=== PATIENT | male | born 1935 | race Caucasian/White ===

== ENCOUNTER → 2017-01-28 | Outpatient (CLI) | payer OTHER, BC | LOC: FIMAGING 10:11 | PROVIDERS: ATTEND Specialist | DX: N13.30 Unspecified hydronephrosis (principal) ==

== ENCOUNTER → 2017-02-18 | Outpatient (CLI) | payer OTHER ==
[~2017-02-18] MED LIST: IOPAMIDOL (ISOVUE-300) 100 ML BTL ONE
== END ==
LOC: FIMAGING 08:43
PROVIDERS: ATTEND Specialist
PROC: CP1Z1ZZ Planar Nuclear Medicine Imaging of Musculoskeletal System, All using Technetium 99m (Tc-99m) (ICD-10-PCS; principal; 2017-02-18)
DX: C61 Malignant neoplasm of prostate (principal)
CPT/HCPCS: 74177; 78306; A9503; Q9967

== ENCOUNTER 2017-03-27 22:14 | Emergency (ER) | payer OTHER, BC ==
--- NOTE | 2017-03-27 23:44 | EDPHY ---
H & P Stated Complaint: PROSTRATE LASER SURG MON, CATHETER IN , FORESKIN SWELLING NOW Time Seen by Provider: 03/27/17 22:41 HPI/ROS: Chief Complaint: Penis foreskin swelling HPI: 81-year-old male who had a green light prostate surgery [address] Kong. Patient had his Cabezas catheter removed yesterday morning but went into urinary retention so returned to the urologist's office yesterday afternoon. At that time he had a no other Cabezas catheter placed. He is reporting that when the replaced that catheter they did not reduce his foreskin to the normal position. Since that time he has been having increasing swelling and discomfort of the distal ends of his penis and foreskin. No fevers or chills. No redness or discharge. He says his catheter has been draining normally. ROS: 10 point Review of Systems is negative except as noted in the HPI. Family History: non-contributory Physical Exam: Gen: Awake, Alert, No Distress HEENT: Nose: no rhinorrhea Eyes: PERRLA, EOMI Mouth: Moist mucosa Neck: Supple, no JVD Chest: nontender, lungs clear to auscultation Heart: S1, S2 normal, no murmur Abd: Soft, non-tender, no guarding Genital: Cabezas catheter in place. Patient's foreskin is retracted with significant distal swelling and swelling of the glans consistent with a paraphimosis. No scrotal tenderness or swelling. No inguinal lymphadenopathy. No erythema. No discharge. Back: no CVA tenderness, no midline tenderness Ext: no edema, non-tender Skin: no rash Neuro: CN II-XII intact, Sensation grossly intact, Strength 5/5 in bilateral upper and lower extremities - Personal History Current Tetanus/Diphtheria Vaccine: Yes - Medical/Surgical History Hx Asthma: No Hx Chronic Respiratory Disease: No Hx Diabetes: No Hx Cardiac Disease: No Hx Renal Disease: No Hx Cirrhosis: No Hx Alcoholism: No Hx HIV/AIDS: No Hx Splenectomy or Spleen Trauma: No Other PMH: HERNIA, APPY, HTN,ANXIETY, ENLARGED PROSTATE - Social History Smoking Status: Never smoked Constitutional: Initial Vital Signs Temperature (C) 36.8 C 03/27/17 22:19 Heart Rate 81 03/27/17 22:19 Respiratory Rate 18 03/27/17 22:19 Blood Pressure 147/86 H 03/27/17 22:19 O2 Sat (%) 93 03/27/17 22:19 O2 Delivery Mode Room Air Allergies/Adverse Reactions: No Known Allergies Allergy (Unverified 03/27/17 22:17) Home Medications: Medication Instructions Recorded Aspirin [Aspirin 81mg (OTC)] 81 mg PO DAILY 09/20/11 Lisinopril [Zestril 10 mg (RX)] 10 mg PO DAILY 09/20/11 Hydrocodone-Acetamin 5-325 mg 03/27/17 Medical Decision Making ED Course/Re-evaluation: 81-year-old male presenting with a paraphimosis after not having his foreskin reduced from a Cabezas catheter placement yesterday. Using gentle pressure over the glans and distal foreskin I have been able to reduce the swelling and I have successfully been able to reduce his foreskin back to a normal position. Patient tolerated the procedure well. He has been observed in the emergency department is not had any return of his paraphimosis. I have discussed with Dr. Delarosa, urology, who was on-call for Dr. Kong. He would like the patient seen in the office on Thursday. Family is to call Thursday morning to arrange appointment. Patient will return for any concerns. Departure - Departure Disposition: Home, Routine, Self-Care Clinical Impression: Paraphimosis Condition: Good Instructions: Acute Paraphimosis (ED) Additional Instructions: Follow up with your urologist on Thursday. Return to the emergency department for worsening swelling, worsening pain, fevers or chills, difficulty passing urine, or any other concerns. Referrals: Charli Kong MD [Primary Care Provider] - As per Instructions
[2017-03-27 23:54] VITALS: BP 138/74; PULSE 66; RESP 16; TEMP 98.1; O2SAT 96
== END 2017-03-27 23:53 | disposition home or self-care (01) ==
DX: N47.2 Paraphimosis (principal); I10 Essential (primary) hypertension; Z79.82 Long term (current) use of aspirin

== ENCOUNTER 2017-03-30 16:23 | Inpatient (IN) | payer OTHER, BC ==
[2017-03-30] MEDS ORDERED: ONDANSETRON DISINTEGRATING 4 MG TAB PO ONE (16:34)
--- NOTE | 2017-03-30 17:36 | EDPHY ---
H & P Time Seen by Provider: 03/30/17 17:16 HPI/ROS: Chief complaint. Fever, vomiting HPI. 81-year-old male presents emergency department with chills that began yesterday and fever to 101 degrees today. He had prostate surgery on March 23. Patient was seen on March 27 in the emergency department for paraphimosis which was reduced. He went to the urologist's office this morning they took his catheter out though he could not void and then he had a return to the urologist's office this afternoon for catheter placement hand had 1 L of urine out. notes that the urine this afternoon has been more bloody than previously. Patient has no upper respiratory symptoms including congestion or cough or sore throat. No chest discomfort or shortness of breath. Today an episode of nausea vomiting and shaking with the fever to 101 degrees. ROS Constitutional. Fever and chills Eyes. no problems with vision ENT. no sore throat, no nasal drainage Cardiovascular. no chest pain Respiratory. no shortness of breath, no cough Abdominal. no abdominal pain, no nausea/vomiting, no diarrhea . Cabezas catheter removed and replaced secondary to inability to void after prostate surgery MS. no calf pain/swelling, no neck/back pain, no joint pain Skin. no rash Lymph. no swollen glands Neuro. no headache, no dizziness, no difficulty walking or with speech Past Medical/Surgical History: Hernia, appendectomy, hypertension, anxiety, BPH status post prostate surgery Social History: , nonsmoker, no alcohol Smoking Status: Never smoked Physical Exam: General Appearance: Alert well-developed male moderate distress vital signs show temp 37.4 degrees. Blood pressure 113/90 Eyes: Pupils equal and round no pallor or injection. ENT, Mouth: Mucous membranes are moist. Respiratory: There are no retractions, lungs are clear to auscultation. Cardiovascular: Regular rate and rhythm. Gastrointestinal: Abdomen is soft and nontender, no masses, bowel sounds normal. Neurological: Awake and alert, sensory and motor exams grossly normal. Skin: Warm and dry, no rashes. Musculoskeletal: Neck is supple nontender. Extremities symmetrical, full range of motion. Psychiatric: Patient is oriented X 3, there is no agitation. Constitutional: Initial Vital Signs Temperature (C) 37.4 C 03/30/17 16:29 Heart Rate 92 03/30/17 16:29 Respiratory Rate 20 03/30/17 16:29 Blood Pressure 113/90 H 03/30/17 16:29 O2 Sat (%) 95 03/30/17 16:29 O2 Delivery Mode Room Air Allergies/Adverse Reactions: No Known Allergies Allergy (Verified 03/30/17 16:32) Home Medications: Medication Instructions Recorded Aspirin EC [Aspirin EC 81 mg (*)] 81 mg PO DAILY 03/30/17 Herbals/Supplements -Info Only 1 ea PO DAILY 03/30/17 Hydrocodone/Acetaminophen 1 - 2 tab PO Q6 PRN 03/30/17 [Hydrocodone-Acetamin 5-325 mg] LORazepam [Lorazepam] 1 mg PO DAILY PRN 03/30/17 Lisinopril [Lisinopril] 10 mg PO DAILY 03/30/17 Tamsulosin HCl [Flomax 0.4 MG (*)] 0.4 mg PO DAILY 03/30/17 Medical Decision Making - Diagnostics Imaging Results: Imaging Impressions Chest X-Ray 03/30/17 17:40 Impression: 1. Lingular and left basilar airspace opacities which may represent atelectasis and/or pneumonia in the proper clinical setting. 2. Prominence of the cardiac silhouette on lateral view may indicate left atrial enlargement. Procedures: IV normal saline. Septic workup. ED Course/Re-evaluation: 6:35 p.m. severe sepsis declared. 30 mls per kg bolus is given. Cultures have been obtained. He is given 1 g Rocephin IV as I believe this is likely UTI as he has had recent prostate surgery and multiple catheters in and out. I thought his chest x-ray looked pretty normal. I have discussed the laboratory imaging evaluation with the patient and family and recommendation for admission. They expressed understanding And agreement I consulted and discussed case with Dr. Maguire, hospitalist, who agrees to the admission Differential Diagnosis: This is likely UTI as a cause of severe sepsis. Patient is not hypotensive. I considered pneumonia as well as influenza. - Data Points Laboratory Results: Laboratory Results 03/30/17 17:23 03/30/17 17:23 03/30/17 03/30/17 03/30/17 18:05 17:23 17:23 WBC RBC Hgb Hct MCV MCH MCHC RDW Plt Count MPV Neut % (Auto) Lymph % (Auto) [place] % (Auto) Eos % (Auto) Baso % (Auto) Nucleat RBC Rel Count Absolute Neuts (auto) Absolute Lymphs (auto) Absolute Monos (auto) Absolute Eos (auto) Absolute Basos (auto) Absolute Nucleated RBC Immature Gran % Immature Gran # Platelet Estimate PT INR APTT VBG Lactic Acid Sodium 127 mEq/L L mEq/L (135-145) Potassium 4.2 mEq/L mEq/L (3.5-5.2) Chloride 95 mEq/L L mEq/L (97-110) Carbon Dioxide 19 mEq/l L mEq/l (22-31) Anion Gap 13 mEq/L mEq/L (8-16) BUN 20 mg/dL mg/dL (7-23) Creatinine 1.2 mg/dL mg/dL (0.7-1.3) Estimated GFR 58 Glucose 73 mg/dL mg/dL (70-100) Calcium 8.5 mg/dL mg/dL (8.5-10.4) Total Bilirubin 1.0 mg/dL mg/dL (0.1-1.4) Lactate Dehydrogenase 849 IU/L H IU/L (313-618) Specimen Hemolysis 104 Nasal Influenza A PCR NEGATIVE FOR FLU A (NEGATIVE) Nasal Influenza B PCR NEGATIVE FOR FLU B (NEGATIVE) 03/30/17 03/30/17 03/30/17 17:23 17:23 17:23 WBC 1.25 10^3/uL L 10^3/uL (3.80-9.50) RBC 3.58 10^6/uL L 10^6/uL (4.40-6.38) Hgb 11.7 g/dL L g/dL (13.7-17.5) Hct 33.2 % L % (40.0-51.0) MCV 92.7 fL fL (81.5-99.8) MCH 32.7 pg pg (27.9-34.1) MCHC 35.2 g/dL g/dL (32.4-36.7) RDW 12.1 % % (11.5-15.2) Plt Count 114 10^3/uL L 10^3/uL (150-400) MPV 10.9 fL fL (8.7-11.7) Neut % (Auto) 88.8 % H % (39.3-74.2) Lymph % (Auto) 10.4 % L % (15.0-45.0) [place] % (Auto) 0.0 % L % (4.5-13.0) Eos % (Auto) 0.8 % % (0.6-7.6) Baso % (Auto) 0.0 % L % (0.3-1.7) Nucleat RBC Rel Count 0.0 % % (0.0-0.2) Absolute Neuts (auto) 1.11 10^3/uL L 10^3/uL (1.70-6.50) Absolute Lymphs (auto) 0.13 10^3/uL L 10^3/uL (1.00-3.00) Absolute Monos (auto) 0.00 10^3/uL L 10^3/uL (0.30-0.80) Absolute Eos (auto) 0.01 10^3/uL L 10^3/uL (0.03-0.40) Absolute Basos (auto) 0.00 10^3/uL L 10^3/uL (0.02-0.10) Absolute Nucleated RBC 0.00 10^3/uL 10^3/uL (0-0.01) Immature Gran % 0.0 % % (0.0-1.1) Immature Gran # 0.00 10^3/uL 10^3/uL (0.00-0.10) Platelet Estimate Pending PT 15.8 SEC H SEC (12.0-15.0) INR 1.24 H (0.83-1.16) APTT 29.5 SEC SEC (23.0-38.0) VBG Lactic Acid 3.8 mmol/L H mmol/L (0.7-2.1) Sodium Potassium Chloride Carbon Dioxide Anion Gap BUN Creatinine Estimated GFR Glucose Calcium Total Bilirubin Lactate Dehydrogenase Specimen Hemolysis Nasal Influenza A PCR Nasal Influenza B PCR Medications Given: Sodium Chloride (Ns) 1,000 mls @ 250 mls/hr IV ONCE ONE Stop: 03/31/17 00:54 Last Admin: 03/30/17 20:59 Dose: 1,000 mls Ondansetron HCl (Zofran) 4 mg IVP Q4HRS PRN PRN Reason: Nausea/Vomiting, Can't Take PO Stop: 09/26/17 18:44 Last Admin: 03/30/17 21:22 Dose: 4 mg Discontinued Medications Sodium Chloride (Ns) 1,000 mls @ 0 mls/hr IV EDNOW ONE; Wide Open PRN Reason: Protocol Stop: 03/30/17 17:57 Last Admin: 03/30/17 18:19 Dose: 1,000 mls Sodium Chloride (Ns) 2,200 mls @ 4,400 mls/hr 30 ml/kg infuse over 30 min ( 2200 ml) IV EDNOW ONE PRN Reason: Protocol Stop: 03/30/17 19:02 Last Admin: 03/30/17 19:30 Dose: 2,200 mls Ceftriaxone Sodium/Dextrose (Rocephin 1 Gm (Premix)) 50 mls @ 100 mls/hr IV EDNOW ONE PRN Reason: Protocol Stop: 03/30/17 19:09 Last Admin: 03/30/17 19:35 Dose: 50 mls Ondansetron HCl (Zofran Odt) 4 mg PO EDNOW ONE Stop: 03/30/17 16:35 Last Admin: 03/30/17 16:36 Dose: 4 mg Ondansetron HCl (Zofran) 4 mg IVP EDNOW ONE Stop: 03/30/17 18:33 Last Admin: 03/30/17 18:37 Dose: 4 mg Departure - Departure Disposition: [facility] Inpatient Acute Clinical Impression: Sepsis Qualifiers: Sepsis type: sepsis due to unspecified organism Qualified Code(s): A41.9 - Sepsis, unspecified organism Condition: Fair
[2017-03-30] MEDS ORDERED: NS 1,000 ML IV ONE ×2 (17:56→20:55)
[2017-03-30 18:04] LABS: PLATELET COUNT 114 10^3/uL (150-400)
[2017-03-30 18:06] LABS: INR 1.24 (0.83-1.16); PROTIME(PATIENT) 15.8 SEC (12.0-15.0)
[2017-03-30] MEDS ORDERED: ONDANSETRON 4 MG/2 ML VIAL IVP ONE (18:32)
[2017-03-30] MEDS ORDERED: NS 2,200 ML IV ONE (18:33)
[2017-03-30] MEDS ORDERED: ACETAMINOPHEN 325 MG TAB PO PRN (18:45)
[2017-03-30] MEDS ORDERED: ONDANSETRON DISINTEGRATING 4 MG TAB PO PRN (18:45)
[2017-03-30] MEDS: ONDANSETRON 4 MG/2 ML VIAL IVP PRN (21:22)
--- NOTE | 2017-03-30 21:39 | GHP ---
[f rep st] HISTORY AND PHYSICAL DATE OF ADMISSION: 03/30/2017 CHIEF COMPLAINT: 1. Sepsis. 2. UTI. PRIMARY UROLOGIST: Charli Kong MD HPI: 81-year-old male with history of BPH presenting with fever and vomiting. He had a GreenLight surgery on 03/23/2017, by Dr. Kong and had a Cabezas placed then. He was seen here at [facility] on the for paraphimosis which was reduced. He had his catheter removed yesterday but was unable to void, thus he returned to his urologist's office this morning and the catheter was replaced and had a liter of urine out. noticed today that the urine was more bloody. He complained of pain in his penis and it was very swollen today. Had shaking chills, nausea and vomiting. He had a fever to 101. He denies any upper respiratory symptoms. REVIEW OF SYSTEMS: I completed a 10-point Review of Systems, negative except as noted in the HPI. 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 PAST SURGICAL HISTORY: Appendectomy, hernia repair. SOCIAL HISTORY: He is , lives in [place]. Drinks wine. No tobacco or illicits. HOME MEDICATIONS: Lisinopril 10 mg daily, [place], aspirin. ALLERGIES: None. PHYSICAL EXAMINATION: VITAL SIGNS: Temperature is 36.9. Blood pressure 113/90 , repeat was 86/52. Heart rate is in the 80s, respirations 20, 93% on room air. GENERAL: Is ill appearing, pale, mild shivering. HEENT: PERRLA. Dry mucous membranes. CV: Regular rate and rhythm. No murmurs, gallops, rubs. LUNGS: Clear. ABDOMEN: Soft, nontender, nondistended. Positive bowel sounds. : Left suprapubic tenderness. Right CVA tenderness with palpation. Cabezas in place with hematuria. MUSCULOSKELETAL: Moving all 4 extremities. NEURO: 2 through 12 are intact. PSYCH: He is alert and oriented x3, but is somnolent, falling asleep during interview. LABS: Negative influenza. WBC is 1.25, hemoglobin is 11, hematocrit is 33, platelets are 114 (platelets and WBC are normal at baseline). INR is 1.2, PT is 15. Lactate is 3.8, repeat is 2.1. Sodium 127, potassium 4.2, chloride 95, carbon dioxide is 29, creatinine is 1.1 which is baseline, glucose is 73, LDH is 849. UA: +2 leuks, +2 bacteria, 50-182 bacteria. Blood and urine cultures are pending. Chest x-ray is personally reviewed by me. Possible left lower lung infiltrate. No edema. ASSESSMENT AND PLAN: 1. Septic shock: due to CAUTI, present on admission.. Positive UA and leukopenia. MAP <[address] Lan to place cental line, pressors ordered. CXR and influenza negative. Lactate initially 3.8, but this improved to 2.1 with fluids. Blood and urine cultures are pending. Treat with intravenous ceftriaxone. Check renal U/S for abscess. 2. Hypotension: Secondary to dehydration and acute illness. Again, aggressive intravenous fluid resuscitation. Will monitor in the stepdown unit. Complete another liter. If not, may warrant intravenous pressors. 3 Leukopenia/thrombocytopenia: This is new for patient. Suspect this is secondary to acute illness. Repeat in the morning. 4. Hematuria: Monitor closely given thrombocytopenia and hold his aspirin. 5. History of hypertension: Hold lisinopril given his setting of acute illness. 6. Benign prostatic hypertrophy: Recent CT showed bladder outlet obstruction. He underwent GreenLight surgery on 03/23/2017. Will contact Urology in the morning. 7. Lactic acidosis due to acute illness and starvation ketoacidosis with decreased p.o. intake. This resolved with intravenous fluids. 8. Diet: Advance as tolerated. 9. Deep vein thrombosis prophylaxis: Sequential compression devices given hematuria. 10. Disp: Patient warrants inpatient admission to the intensive care unit given acute sepsis warranting aggressive intravenous fluid resuscitation, antibiotics. Critical care time spent: 60 min bedside with patient, reviewing hx with , d /w Dr. Lan and coordinating ICU care and treatment plan. /[id number]/MODL MTDD
[2017-03-30] MEDS ORDERED: VASOPRESSIN/DEXTROSE 250 ML IV SCH (22:30)
[2017-03-30] MEDS: NOREPINEPHRINE/NS 500 ML IV SCH ×2 (23:01→23:03)
--- NOTE | 2017-03-30 23:06 | POSTOPPROG ---
Post Op Note Date of Operation: 03/30/17 Surgeon: Maurilio Lan Anesthesia: Local (Specify) (1% lidocaine 5cc) Pre-op Diagnosis: sepsis with inadequate central access for pressors Post-op Diagnosis: sepsis with inadequate central access for pressors Indication: sepsis with inadequate central access for pressors Procedure: placement of right subclavian central line (position confirmed by X- ray) Findings: sepsis with inadequate central access for pressors Inf/Abcess present in the surg proc area at time of surgery?: No EBL: Minimal Total fluids administered: 250cc NS Complications: none Specimen(s): none
--- NOTE | 2017-03-30 23:41 | GOP ---
[f rep st] OPERATIVE REPORT DATE OF OPERATION: 03/30/2017 SURGEON: Maurilio Lan MD ANESTHESIA: Local 1% lidocaine 5 cc. PREOPERATIVE DIAGNOSIS: Sepsis with inadequate central access for pressors. POSTOPERATIVE DIAGNOSIS: Sepsis with inadequate central access for pressors. PROCEDURE PERFORMED: Placement of right subclavian central line, position confirmed by x-ray. FINDINGS: Sepsis with inadequate central access for pressors. SPECIMENS: None. ESTIMATED BLOOD LOSS: Minimal. INDICATIONS: Sepsis with inadequate central access for pressors. DESCRIPTION OF PROCEDURE: The patient was placed in the supine position. A consent had been obtained from his and a surgical time-out had proceeded. The right chest was then carefully prepped and draped. The skin was anesthetized. A superficial pass was made with the 16-gauge thin wall needle without accessing the vein. A slightly deeper pass was made and the vein was immediately accessed. The needle was advanced. The bevel turned 90 degrees. A guidewire was passed centrally and ectopy was noted. The syringe needle was extracted over the wire. The skin was then incised. A dilator was passed. The previously flushed triple-lumen catheter was passed over the guidewire (the blue and white port had been secured with Hep-Lock adapter and flushed). It was advanced to the 16 cm gabriella. The guidewire was removed. Cap was placed on the 3rd line and it was flushed. The line was secured at the skin level with a suture of 2-0 silk. A 2nd suture was placed inferiorly on the chest wall to secure the hub. A Biopatch was placed after the area had been cleaned. Drape was pulled back and a Tegaderm was placed over the central line. A chest x-ray showed the central line to be in good position in the superior vena cava without evidence of pneumothorax. The patient tolerated the procedure well. FLUIDS ADMINISTERED: 250 cc normal saline. COMPLICATIONS: None. /[id number]/MODL MTDD
[2017-03-31] MEDS: NOREPINEPHRINE/NS 500 ML IV SCH ×3 (03:53→17:26)
--- NOTE | 2017-03-31 07:12 | GCON ---
[f rep st] CONSULTATION [facility] CONSULTATION REASON FOR ADMISSION: Sepsis, urinary tract infection, hypotension. HISTORY OF PRESENT ILLNESS: The patient is an extremely pleasant 81-year-old, white male with a past medical history including bladder outlet obstruction secondary to BPH. He is also status post Green Light procedure that occurred on March 23, 2017. He has hypertension and anxiety. He presented to the emergency room with complaints of fever and pain. He had been seen previously for paraphimosis on March 27. This was subsequently reduced. He was seen at his urologist's office, his catheter was replaced at that time, which had a L of urine. Over the course of the day, his urine became mor e bloody and he complained of more pain as well as fever and he was brought to the emergency room and subsequently admitted. Currently, he is resting comfortably. Looks and feels improved from yesterd ay. PAST MEDICAL HISTORY: Significant for bladder outlet obstruction secondary to benign prostatic hyper trophy, for which he is status post GreenLight surgery. He has anxiety and hypertension. PAST SURGERIES: Hernia repair and appendectomy. ALLERGIES: No known allergies to medications. SOCIAL HISTORY: No history of tobacco use. He drinks wine daily. He is . Has excellent [facility] support. MEDICATIONS: At home include aspirin, [place], and lisinopril. FAMILY HISTORY: Noncontributory. REVIEW OF SYSTEMS: Ten-point review of systems was performed and is negative except for which was no ken in HPI. PHYSICAL EXAM: VITAL SIGNS: Blood pressure is 117/58, pulse 74, respirations 20, temperature 37.7, oxygen saturation 95% on 2 L. GENERAL: He is a well-developed, well-nourished, elderly white male w ho is resting comfortably in no acute distress. HEENT: Eyes are PERRLA, EOMI. Throat shows no eryt toni or tonsillar hypertrophy. NECK: Supple. No cervical adenopathy. HEART: Regular rate and rhy thm with a 2/6 systolic murmur at the left sternal border without radiation. LUNGS: Diminished manoj th sounds but no wheeze. ABDOMEN: Soft, nontender. Bowel sounds are present. EXTREMITIES: No clu bbing, cyanosis, or edema. LABORATORIES: White count 34695, hemoglobin 11, hematocrit 31, platelet count is 113. Sodium 133, p otassium 3.7, chloride 103, CO2 is 19, BUN 21, creatinine 1.4, glucose 102. Urinalysis, pH is 5, spe cific gravity 1.019, 50-182 RBCs, 50-182 WBCs, 2+ bacteria. Influenza A and B are negative. Blood c ultures have been reported as positive. IMPRESSION: 1. Sepsis with septic shock is improved with aggressive hydration. Has not required IV pressors at this point. 2. Infectious disease-likely urinary source. Awaiting cultures at this time. 3. Hypertension. 4. Benign prostatic hypertrophy, status post GreenLight procedure. 5. Lactic acidosis-resolved. RECOMMENDATIONS: 1. Aggressive hydration. 2. Antibiotics as we are doing. 3. DVT and PE prophylaxis. 4. Stress ulcer prophylaxis. 5. Will discuss case with Urology. 6. Sepsis protocol. Thank you very much. /[id number]/MODL
[2017-03-31] MEDS ORDERED: cefTRIAXone 1 GM in STERILE WATER INJ 10 ML IV SCH (09:00)
[2017-03-31] MEDS ORDERED: ENOXAPARIN 40 MG/0.4 ML SYR SC SCH (09:00)
--- NOTE | 2017-03-31 10:23 | HOSPPROG ---
Hospitalist Progress Note Assessment/Plan: DIAGNOSES: -Septic Shock requiring pressor support -E coli UTI and bacteremia, CAUTI present on admission -Bladder Outlet Obstruction/Acute Urinary retention due to multiple caths and cysto procedure -Anion Gap Met Acidosis -neutropenic fever -Prostate Cancer Pt seen on 3 visits today. Initially on Norepi and vasopressin for BP, w some tachycardia, poor urine output. As day went on able to wean off vasopressin. No resp issues, no other complications. No abx side effects. Pt had recent laser tx for CA around a week and half ago, had multiple urine retention with catheters in and out prior to this admission. Case reviewed in detail today with Dr Vance, also seen on mulltidisc rounds PLANS: -continue fluid resuscitation -continue current pressor support -continue currnet abx for E coli UTI -cointinue montez drainage for now (new cath yest), and will likely need montez at DC -follow hemodynamics, renal function closely -DVT prophylaxis -follow cell counts SUBJECTIVE: feels notably better, quite weak, no appetite still some chills and sweats no abd or bladder or CVA pain OBJECTIVE: VITALS: BPs in good range so far on pressors, resps good CARD MONITOR: all sinus EXAM: alert oriented not anxous skin warm dry resps easy lungs clear heart regular abd soft nondistended nontender no bladder fullness or tenderness montez in place with clear but dark urine no edema no rash, no mottling of skin, cap refill slow Lab data: Creat up to 1.4 (baseline 1.1) lytes ok neutropenia resolved now w WBC at 26 K, Hg stable at 11 Microbioloy: all cultures of urine and blood with E coli, no antibx sens results yet Renal US, I reviewed images and report: no hydronephrosis, no stones, no abscess, some bladder wall thickening Objective: Vital Signs Temp Pulse Resp BP Pulse Ox 37.5 C 80 26 H 106/61 94 03/31/17 08:00 03/31/17 08:00 03/31/17 09:00 03/31/17 09:00 03/31/17 09:00 Microbiology 03/30/17 19:25 Blood Panel (PCR) - Final Blood Escherichia Coli Laboratory Results 03/31/17 04:55 03/31/17 04:55 03/30/17 03/31/17 04/01/17 06:59 06:59 06:59 Intake Total 3857 Output Total 825 Balance 3032 PT 15.8 SEC (12.0-15.0) H 03/30/17 17:23 INR 1.24 (0.83-1.16) H 03/30/17 17:23 ICD10 Worksheet Patient Problems: Problems Problem Status Onset Sepsis Acute
--- NOTE | 2017-03-31 14:17 | PDMN ---
Medical Necessity Medical necessity: est los>2mn for septic shock r/t CAUTI w/positive UA, MAP<60 , lactate 3.8, hypotension, hematuria, leukopenia / thrombocytopenia; admit to ICU/SDU for IVF, IV abx, close monitoring; comorbid BPH w/ recent GeenLight surgery w/montez placement, hx htn; per order and H&P 03/30/17
[2017-03-31] MEDS: ONDANSETRON 4 MG/2 ML VIAL IVP PRN (14:51)
[2017-03-31] MEDS ORDERED: NS 1,000 ML IV SCH (15:00)
--- NOTE | 2017-03-31 16:26 | ASMTCMCOM ---
CM Note CM Note Notes: 81 year old male admitted for UTI -sepsis, N/V. He has a hx of BPH. He had GreenLight surgery on 03/23/17 with montez placement. Has had the montez removed numerous times with the inability to urinate. Now has [id number] and being tx with ABX. Lives with his . May need IV ABX on discharge. CM to follow. Date Signed: 03/31/2017 04:25 PM Electronically Signed By:Amaya Dominguez LCSW
--- NOTE | 2017-03-31 21:24 | HOSPPROG ---
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 Initially on Norepi and vasopressin for BP, w some tachycardia, poor urine output. As day went on able to wean off vasopressin. No resp issues, no other complications. No abx side effects. Pt had recent laser tx for CA around a week and half ago, had multiple urine retention with catheters in and out prior to this admission. Case reviewed in detail today with Dr Vance, also seen on mulltidisc rounds PLANS: -continue fluid resuscitation -continue current pressor support -continue currnet abx for E coli UTI -cointinue montez drainage for now (new cath yest), and will likely need montez at DC -follow hemodynamics, renal function closely -DVT prophylaxis -follow cell counts, renal function closely SUBJECTIVE: feels notably better, quite weak, no appetite still some chills and sweats no abd or bladder or CVA pain OBJECTIVE: VITALS: BPs in good range so far on pressors, resps good CARD MONITOR: all sinus EXAM: alert oriented not anxous skin warm dry resps easy lungs clear heart regular abd soft nondistended nontender no bladder fullness or tenderness motnez in place with clear but dark urine no edema no rash, no mottling of skin, cap refill slow Lab data: Creat up to 1.4 (baseline 1.1) lytes ok neutropenia resolved now w WBC at 26 K, Hg stable at 11 Microbioloy: all cultures of urine and blood with E coli, no antibx sens results yet Renal US, I reviewed images and report: no hydronephrosis, no stones, no abscess, some bladder wall thickening Objective: Vital Signs Temp Pulse Resp BP Pulse Ox 36.9 C 75 15 103/48 L 95 03/31/17 20:00 03/31/17 21:00 03/31/17 21:00 03/31/17 21:00 03/31/17 21:00 Microbiology 03/30/17 19:25 Blood Panel (PCR) - Final Blood Escherichia Coli Laboratory Results 03/31/17 04:55 03/31/17 04:55 03/30/17 03/31/17 04/01/17 06:59 06:59 06:59 Intake Total 3857 2148 Output Total 825 1050 Balance 3032 1098 PT 15.8 SEC (12.0-15.0) H 03/30/17 17:23 INR 1.24 (0.83-1.16) H 03/30/17 17:23 - Time Spent With Patient Time Spent with Patient: greater than 35 minutes Time Spent with Patient: Greater than 35 minutes spent on this patients care, greater than 50% of time spent counseling, educating, and coordinating care regarding the above mentioned plan. ICD10 Worksheet Patient Problems: Problems Problem Status Onset Sepsis Acute
[2017-04-01] MEDS ORDERED: NOREPINEPHRINE BITARTRATE 4 MG in D5W 500 ML IV SCH (03:00)
[2017-04-01 05:20] LABS: PLATELET COUNT 87 10^3/uL (150-400)
[2017-04-01] MEDS: ONDANSETRON 4 MG/2 ML VIAL IVP PRN (08:21)
--- NOTE | 2017-04-01 08:53 | PDINTPN ---
Systems Developer Progress Note Assessment/Plan: Assessment/plan: * Sepsis * Septic shock-still on vasopressin and Levophed -wean as tolerated * Urinary tract infection * Bacteremia-E coli * Constipation-will start bowel protocol * Benign prostatic hypertrophy with outflow tract obstruction-status post green light procedure * Stress ulcer prophylaxis * DVT and PE prophylaxis * PT/OT-will get patient out of bed today * Nutrition-poor appetite at this point. -will encourage Subjective: Sitting up in bed. Poor appetite. Complains of constipation. Pain is well tolerated. Objective: Vital Signs Temp Pulse Resp BP Pulse Ox 37.3 C 74 21 H 128/57 H 94 04/01/17 08:00 04/01/17 08:45 04/01/17 08:00 04/01/17 08:45 04/01/17 08:00 Microbiology 03/30/17 19:19 Urine Culture - Final Urine,Catheterized Escherichia Coli 03/30/17 19:25 Blood Panel (PCR) - Final Blood Escherichia Coli Laboratory Results 04/01/17 04:55 04/01/17 04:55 03/31/17 04/01/17 04/02/17 05:59 05:59 05:59 Intake Total 3857 4069.1 Output Total 825 1800 Balance 3032 2269.1 PT 15.8 SEC (12.0-15.0) H 03/30/17 17:23 INR 1.24 (0.83-1.16) H 03/30/17 17:23 - Time Spent With Patient Time Spent With Patient: 35 min of time spent with patient, over 1/2 involved with coordination of care counseling. Case discussed with nursing as well as family Physical Exam - Physical Exam General Appearance: alert, mild distress EENT: PERRL/EOMI, normal ENT inspection Neck: non-tender, full range of motion, supple, normal inspection Respiratory: decreased breath sounds, No respiratory distress, No wheezing Cardiac/Chest: normal peripheral pulses, regular rate, rhythm, systolic murmur Abdomen: normal bowel sounds, non-tender, soft Male Genitalia: deferred Rectal: deferred Skin: normal color, warm/dry Extremities: normal range of motion, non-tender, normal inspection, normal capillary refill Neuro/Psych: alert, normal mood/affect, oriented x 3 ICD10 Worksheet Patient Problems: Problems Problem Status Onset Sepsis Acute
[2017-04-01] MEDS ORDERED: MAGNESIUM HYDROXIDE 30 ML UDCUP PO PRN (10:19)
[2017-04-01] MEDS ORDERED: POLYETHYLENE GLYCOL 3350 17 GM PKT PO PRN (10:19)
[2017-04-01] MEDS ORDERED: LACTULOSE 20 GM/30 ML UDCUP PO PRN (10:19)
[2017-04-01] MEDS ORDERED: BISACODYL 10 MG SUPP PR PRN (10:19)
[2017-04-01] MEDS: SENNOSIDES/DOCUSATE SODIUM TAB PO SCH ×2 (11:35→20:59)
--- NOTE | 2017-04-01 15:12 | HOSPPROG ---
Hospitalist Progress Note Assessment/Plan: 81 yo M w bph, recent green light photovaporization of prostate here w sepsis of urinary source septic shock: w bacteremia septic physiology has resolved UTI w bacteremia: on ceftriaxone urinary retention: failed outpt montez removal will have urology see needs montez changed given infection leukopenia: resolved sepsis related proph: lmwh dispo: inpt Subjective: case d/w dr perdomo. off pressors Objective: Vital Signs Temp Pulse Resp BP Pulse Ox 37.3 C 77 22 H 114/55 L 95 04/01/17 08:00 04/01/17 14:00 04/01/17 14:00 04/01/17 14:00 04/01/17 14:00 Microbiology 03/30/17 19:19 Urine Culture - Final Urine,Catheterized Escherichia Coli 03/30/17 19:25 Blood Panel (PCR) - Final Blood Escherichia Coli Laboratory Results 04/01/17 04:55 04/01/17 04:55 03/31/17 04/01/17 04/02/17 05:59 05:59 05:59 Intake Total 3857 4069.1 Output Total 825 1800 Balance 3032 2269.1 PT 15.8 SEC (12.0-15.0) H 03/30/17 17:23 INR 1.24 (0.83-1.16) H 03/30/17 17:23 - Physical Exam Constitutional: no apparent distress, appears nourished Eyes: PERRL, anicteric sclera Ears, Nose, Mouth, Throat: moist mucous membranes, hearing normal Cardiovascular: regular rate and rhythym, no murmur, rub, or gallop Respiratory: no respiratory distress, no rales or rhonchi Gastrointestinal: normoactive bowel sounds, soft, non-tender abdomen Genitourinary: montez in urethra, other (foreskin not retracted) Skin: warm, normal color Musculoskeletal: full muscle strength, no muscle tenderness Neurologic: AAOx3 ICD10 Worksheet Patient Problems: Problems Problem Status Onset Sepsis Acute
--- NOTE | 2017-04-01 15:29 | ASMTCMCOM ---
CM Note CM Note Notes: Patient improving but quite weak and has no appetite. Patient still has some chills and sweats. Continue to monitor in the event patient will need IV ABX at d/c. CM will follow. Date Signed: 04/01/2017 03:29 PM Electronically Signed By:Cristin Craft LCSW
[2017-04-01] MEDS: LORazepam 1 MG TAB PO PRN (20:59)
[2017-04-01] MEDS ORDERED: SENNOSIDES/DOCUSATE SODIUM TAB PO SCH (21:00)
[2017-04-02 05:44] LABS: PLATELET COUNT 79 10^3/uL (150-400)
[2017-04-02] MEDS: SENNOSIDES/DOCUSATE SODIUM TAB PO SCH ×2 (08:37→20:50)
[2017-04-02] MEDS: TAMSULOSIN HCL 0.4 MG CAP PO SCH (08:42)
[2017-04-02] MEDS: ENOXAPARIN 40 MG/0.4 ML SYR SC SCH (08:43)
--- NOTE | 2017-04-02 09:53 | HOSPPROG ---
Hospitalist Progress Note Assessment/Plan: 81 yo M w bph, recent green light photovaporization of prostate here w sepsis of urinary source septic shock: w bacteremia septic physiology has resolved UTI w bacteremia: on ceftriaxone urinary retention: failed outpt montez removal will have urology see today needs montez changed given infection i favor a trial of no montez today leukopenia: resolved sepsis related proph: lmwh dispo: inpt Subjective: case d/w urology PA (Evelina) and Dr Marrero. afebrile Objective: Vital Signs Temp Pulse Resp BP Pulse Ox 36.4 C 68 14 127/63 H 96 04/01/17 20:00 04/02/17 05:47 04/02/17 04:00 04/02/17 05:47 04/02/17 04:00 Microbiology 03/30/17 19:25 Blood Culture - Final Blood Escherichia Coli Blood Panel (PCR) - Final Escherichia Coli 03/30/17 19:19 Blood Culture - Final Blood Escherichia Coli 03/30/17 19:19 Urine Culture - Final Urine,Catheterized Escherichia Coli Laboratory Results 04/02/17 05:30 04/02/17 05:30 04/01/17 04/02/17 04/03/17 05:59 05:59 05:59 Intake Total 4069.1 2058 Output Total 1800 1500 Balance 2269.1 558 PT 15.8 SEC (12.0-15.0) H 03/30/17 17:23 INR 1.24 (0.83-1.16) H 03/30/17 17:23 - Physical Exam Constitutional: no apparent distress, appears nourished Eyes: PERRL, anicteric sclera Ears, Nose, Mouth, Throat: moist mucous membranes, hearing normal Cardiovascular: regular rate and rhythym, no murmur, rub, or gallop Respiratory: no respiratory distress, no rales or rhonchi Gastrointestinal: normoactive bowel sounds, soft, non-tender abdomen Genitourinary: no bladder fullness, montez in urethra Skin: warm, normal color Musculoskeletal: full muscle strength, no muscle tenderness Neurologic: AAOx3, sensation intact bilaterally Psychiatric: interacting appropriately, not anxious Lymph, Heme, Immunologic: no cervical LAD ICD10 Worksheet Patient Problems: Problems Problem Status Onset Sepsis Acute
--- NOTE | 2017-04-02 11:10 | PDINTPN ---
Blueprint Trimmer Progress Note Assessment/Plan: Assessment/plan: 81 M with BPH s/p greenlight surgery complicated by urinary retention and multiple montez changes, admitted 03/30/17 with septic shock. Urine and blood cultures grew sensitive E. Coli, treated with ceftriaxone with rapid improvement in clinical status- initially required pressors, IVF, but no vent. * septic shock likely from urine source with bacteremia and rapid improvement. Now off pressors and adequate uop. E coli is sensitive to CTX so continue that for now. WBC still 23, but falling. This was initially low with acute infection. * Urinary retention- defer to urology for montez management * Thrombocytopenia- may be resolving DIC versus HIT. Lovenox held and follow * OK for floor Subjective: feels better Objective: Vital Signs Temp Pulse Resp BP Pulse Ox 36.4 C 68 14 127/63 H 96 04/01/17 20:00 04/02/17 05:47 04/02/17 04:00 04/02/17 05:47 04/02/17 04:00 Microbiology 03/30/17 19:25 Blood Culture - Final Blood Escherichia Coli Blood Panel (PCR) - Final Escherichia Coli 03/30/17 19:19 Blood Culture - Final Blood Escherichia Coli 03/30/17 19:19 Urine Culture - Final Urine,Catheterized Escherichia Coli Laboratory Results 04/02/17 05:30 04/02/17 05:30 04/01/17 04/02/17 04/03/17 05:59 05:59 05:59 Intake Total 4069.1 2058 Output Total 1800 1500 Balance 2269.1 558 PT 15.8 SEC (12.0-15.0) H 03/30/17 17:23 INR 1.24 (0.83-1.16) H 03/30/17 17:23 Physical Exam - Physical Exam General Appearance: WD/WN, alert, no apparent distress EENT: PERRL/EOMI Neck: supple Respiratory: lungs clear, normal breath sounds, No respiratory distress, No accessory muscle use Cardiac/Chest: regular rate, rhythm, No edema Abdomen: non-tender, soft, No distended Skin: normal color, warm/dry Lymphatic: no adenopathy Extremities: No pedal edema Neuro/Psych: alert, normal mood/affect, oriented x 3 ICD10 Worksheet Patient Problems: Problems Problem Status Onset Sepsis Acute
--- NOTE | 2017-04-02 13:03 | GCON ---
[f rep st] CONSULTATION DATE OF CONSULTATION: 04/02/2017 REASON FOR CONSULT: Urosepsis, urinary retention. HPI: This is a pleasant 81-year-old male who is well known to our office. He underwent a GreenLight laser surgery of his prostate for urinary retention by Dr. Kong on 03/23/2017. A Cabezas catheter p laced at that time without complications. The patient has failed 2 voiding trials at this point. Th e patient was having pain at the tip of the penis and swelling along with nausea, vomiting, chills, a nd a fever of 101. He was admitted to the emergency room, where he is being cared for and diagnosed with urosepsis. At this point, the patient clinically has improved. REVIEW OF SYSTEMS: Ten-point review of systems negative except as mentioned in HPI. PMH: Bladder outlet obstruction, GreenLight laser surgery, hypertension, anxiety. PAST SURGICAL HISTORY: Appendectomy, hernia. SOCIAL HISTORY: , lives in [place], originally from [place]. Drinks wine. HOME MEDICATIONS: Lisinopril, Strawn, aspirin. ALLERGIES: None. PHYSICAL EXAM: VITAL SIGNS: Blood pressure 127/63, heart rate 68, respirations 14, O2 was 96 on 2 L /minute. GENERAL: This is a well-developed, well-nourished male, in no acute distress. HEENT: Nor mocephalic, atraumatic. Extraocular movements intact. NECK: Supple. No lymphadenopathy. Trachea midline. RESPIRATORY: No accessory respiratory muscle use. CARDIAC: Regular rate and rhythm. LOW ER EXTREMITIES: No obvious lower extremity edema, although patient has on compression stockings. GI : Abdomen soft, nondistended, nontender to palpation. : No CVA tenderness. No bladder distentio n. Cabezas catheter in place draining clear urine. INTEGUMENT: No obvious rashes or lesions. NEURO: Patient was alert and oriented. Affect appropriate to situation. MUSCULOSKELETAL: He was upright and moving without difficulty, although assisted by an aide when I came into the room. LABS: His white blood cell count is 23.5 and his hemoglobin is 9.2, hematocrit 26.7, platelets 79. Chemistry: His sodium is 136, potassium 3.7, chloride 110, carbon dioxide 18, creatinine 0.9, glucos e 90, calcium 7.6. Microbiology: Blood culture and urine culture both positive for E coli. The pat ient did have an ultrasound which showed a resolved mild right hydro, decrease in the size of left hy candis, now mild. ASSESSMENT: Urosepsis, urinary retention. PLAN: I have discussed this case with Dr. Kong, because this is his recent surgical patient. Cath eter was just changed in our office on Thursday. Recommend catheter be left in place and patient retur n to our office as an outpatient for an attempted voiding trial next week. Otherwise, recommended th at he cath. Continue supportive care and antibiotics. Appreciate the assistance of his care team. /[id number]/MODL
[2017-04-02] MEDS: LORazepam 1 MG TAB PO PRN (20:58)
[2017-04-03 08:18] VITALS: RESP 18; TEMP 98.6
--- NOTE | 2017-04-03 09:14 | HOSPPROG ---
Hospitalist Progress Note Assessment/Plan: 81 yo M w bph, recent green light photovaporization of prostate here w sepsis of urinary source septic shock: w bacteremia septic physiology has resolved UTI w bacteremia: on ceftriaxone complete 14 day course of abx given sensitivities, can complete course w keflex urinary retention: failed outpt montez removal will have urology see today urology recommend leaving montez in until voiding trial next week leukopenia: resolved sepsis related proph: lmwh dispo: home today > 30 minutes Subjective: afebrile. seen by urology- they rec leaving montez in until outpt follow up Objective: Vital Signs Temp Pulse Resp BP Pulse Ox 37.0 C 76 18 119/56 L 96 04/03/17 08:00 04/03/17 08:00 04/03/17 08:00 04/03/17 08:00 04/03/17 08:00 Microbiology 03/30/17 19:25 Blood Culture - Final Blood Escherichia Coli Blood Panel (PCR) - Final Escherichia Coli 03/30/17 19:19 Blood Culture - Final Blood Escherichia Coli Laboratory Results 04/02/17 05:30 04/02/17 05:30 04/02/17 04/03/17 04/04/17 05:59 05:59 05:59 Intake Total 2057 Output Total 3337 116 2418 Balance 558 -400 -1300 PT 15.8 SEC (12.0-15.0) H 03/30/17 17:23 INR 1.24 (0.83-1.16) H 03/30/17 17:23 - Physical Exam Constitutional: no apparent distress, appears nourished Eyes: PERRL, anicteric sclera Ears, Nose, Mouth, Throat: moist mucous membranes, hearing normal Cardiovascular: regular rate and rhythym, no murmur, rub, or gallop Respiratory: no respiratory distress, no rales or rhonchi Gastrointestinal: normoactive bowel sounds, soft, non-tender abdomen Genitourinary: No montez in urethra Skin: warm, normal color Musculoskeletal: full muscle strength Neurologic: AAOx3 Psychiatric: interacting appropriately ICD10 Worksheet Patient Problems: Problems Problem Status Onset Sepsis Acute
[2017-04-03] MEDS: ENOXAPARIN 40 MG/0.4 ML SYR SC SCH (09:33)
[2017-04-03] MEDS: TAMSULOSIN HCL 0.4 MG CAP PO SCH (09:35)
[2017-04-03] MEDS: SENNOSIDES/DOCUSATE SODIUM TAB PO SCH (09:35)
[2017-04-03 10:41] VITALS: BP 120/60; PULSE 69; O2SAT 94
--- NOTE | 2017-04-03 10:47 | PDIAF ---
- Diagnosis Diagnosis: UTI w bacteremia Code Status: Full Code - Medication Management Discharge Medications: Medications to Continue on Transfer Aspirin EC [Aspirin EC 81 mg (*)] 81 mg PO DAILY 03/30/17 [Last Taken 03/30/17] Herbals/Supplements -Info Only 1 ea PO DAILY 03/30/17 [Last Taken Unknown] Hydrocodone/Acetaminophen [Hydrocodone-Acetamin 5-325 mg] 1 - 2 tab PO Q6 PRN [Last Taken 03/30/17 12:00] LORazepam [Lorazepam] 1 mg PO DAILY PRN 03/30/17 [Last Taken 03/29/17] Lisinopril 10 mg PO DAILY 03/30/17 [Last Taken 03/30/17] Cephalexin [Keflex (*)] 500 mg PO QID #36 cap 04/03/17 [Last Taken Unknown] Discharge Medications: Refer to the Discharge Home Medication list for PRN reason. - Orders Services needed: Physical Therapy Isolation Type: None - Follow Up Care Current Providers and Referrals: Simón Shaffer MD [Primary Care Provider] - As per Instructions
--- NOTE | 2017-04-03 11:01 | ASMTCMCOM ---
CM Note CM Note Notes: Patient medically cleared for discharge. Plan is home with JOHNNIE montez RN and PT. The patient and his have chosen [facility]. He was accepted verbally via phone. Final orders via allscripts. Will put [facility] number on discharge instructions. CM available should any other needs arise. Date Signed: 04/03/2017 11:00 AM Electronically Signed By:Tiff Cornejo RN
--- NOTE | 2017-04-03 15:39 | GDS ---
[f rep st] DISCHARGE SUMMARY DISCHARGE DIAGNOSES: 1. Urinary tract infection with bacteremia. 2. Escherichia coli bacteremia. 3. Sepsis requiring pressors. 4. Complicated urinary tract infection. 5. History of benign prostatic hypertrophy, status post GreenLight photovaporization of the prostate . 6. Hypertension. HOSPITAL COURSE: Please see admission history and physical by Dr. Mallika Maguire. The patient prese nted with fever, chills, was found to have a UTI. He had septic physiology with an elevated venous l actate and hypotension. Central line was placed, initiated on pressors. IV fluid resuscitated, star ken on ceftriaxone. Blood cultures grew out E coli. He was seen by Urology, who recommended leaving his Cabezas in as he had failed a spontaneous bladder trial. The Cabezas was changed 2 days prior to ad mission. He defervesced, was weaned off pressors, transitioned to the floor, discharged home today t o complete a 2-week course of antibiotics. He had a pansensitive E coli. Discharged on Keflex, and has outpatient followup with Urology. /[id number]/MODL
== END 2017-04-03 13:59 | disposition home health service (06) | DRG 698 ==
LOC: F2N 21:00 → F3N 04-02 14:15
PROVIDERS: ADMIT Internal Medicine; ATTEND Internal Medicine
PROC: 3E043XZ Introduction of Vasopressor into Central Vein, Percutaneous Approach (ICD-10-PCS; principal; 2017-03-30)
PROC: 02HV33Z Insertion of Infusion Device into Superior Vena Cava, Percutaneous Approach (ICD-10-PCS; principal; 2017-03-30)
DX: T83.511A Infection and inflammatory reaction due to indwelling urethral catheter, initial encounter (principal); A41.51 Sepsis due to Escherichia coli [E. coli]; R65.21 Severe sepsis with septic shock; E87.2 Acidosis; N39.0 Urinary tract infection, site not specified; R31.0 Gross hematuria; R33.9 Retention of urine, unspecified; D69.59 Other secondary thrombocytopenia; K59.00 Constipation, unspecified; I10 Essential (primary) hypertension; F41.9 Anxiety disorder, unspecified
CPT/HCPCS: 96374; 97161-GP; 97165-GO; G8978-GP-CI; G8979-GP-CI; G8980-GP-CI; G8987-GO-CI; G8988-GO-CI; G8989-GO-CI; J0696; J1650; J2405

== ENCOUNTER 2017-04-21 16:29 | Inpatient (IN) | payer OTHER, BC ==
--- NOTE | 2017-04-21 17:08 | EDPHY ---
H & P Time Seen by Provider: 04/21/17 16:46 HPI/ROS: CHIEF COMPLAINT: Right-sided flank pain HISTORY OF PRESENT ILLNESS: The patient is 81-year-old man with a history of previous admission for the urosepsis including pressors in the ICU. He had his Cabezas removed at [facility] yesterday. He has had increasing urinary frequency for the last 24 hr and then this morning developed pain in his right flank which is 9/10. Does not radiate. Not better or worse with movement. Not associated with hematuria or fever or recent injury or trauma. REVIEW OF SYSTEMS: Eye: no change in vision ENT: no sore throat Cardiac: no chest pain or syncope Pulmonary: no cough or SOB Abdomen: No vomiting or diarrhea Musculoskeletal: HPI Skin: no rash Neuro: no headache Constitutional: no fever : HPI A comprehensive 10 point review of systems is otherwise negative aside from elements mentioned in the history of present illness. PAST MEDICAL HISTORY: Includes recent urosepsis, hypertension, appendectomy, hernia surgery Social history: General Appearance: Alert and conversant, cooperative. Eyes: No scleral icterus. ENT, Mouth: Normal mucous membranes. Respiratory: Normal respiratory effort, breath sounds equal, lungs are clear to auscultation. Cardiovascular: Regular rate and rhythm. Gastrointestinal: Abdomen is soft and non tender. No pulsatile mass and no suprapubic fullness. Neurological: Alert, face symmetric, normal motor and sensory in extremities. Straight leg raising negative bilaterally, toes downgoing on both sides. Skin: Warm and dry, no rashes. Specifically no zoster over the right flank. Musculoskeletal: No peripheral edema. Psychiatric: Not agitated. Emergency Department course/MDM: Fentanyl 50 mcg IV, oral acetaminophen. Urinalysis and postvoid residual by bladder scan. CBC chemistry, i-STAT to check creatinine followed by CT abdomen pelvis with IV contrast to evaluate for possible perinephric abscess. 1817: Cabezas placed for greater than 700 mL postvoid residual, urinalysis shows pyuria and 3+ leukocyte esterase and bacteria. Readmitted for UTI given recent severe urosepsis requiring ICU on pressors. Broad-spectrum antibiotics considering recent prolonged catheterization, previous urinary and blood cultures reviewed show E coli sensitive to all cephalosporins. Will choose cefepime [address] discussed [address] Jhonny Mccall radiologist. Bladder outlet obstruction with associated hydronephrosis but no perinephric abscess seen. Smoking Status: Never smoked Constitutional: Initial Vital Signs Temperature (C) 36.7 C 04/21/17 16:33 Heart Rate 78 04/21/17 16:33 Respiratory Rate 18 04/21/17 16:33 Blood Pressure 115/83 H 04/21/17 16:33 O2 Sat (%) 96 04/21/17 16:33 O2 Delivery Mode Room Air Allergies/Adverse Reactions: No Known Allergies Allergy (Verified 04/21/17 16:33) Home Medications: Medication Instructions Recorded Aspirin EC [Aspirin EC 81 mg (*)] 81 mg PO DAILY 03/30/17 Herbals/Supplements -Info Only 1 ea PO DAILY 03/30/17 LORazepam [Lorazepam] 0.5 - 1 mg PO DAILY PRN 03/30/17 Lisinopril 10 mg PO DAILY 03/30/17 Tamsulosin HCl [Flomax 0.4 MG (*)] 0.4 mg PO DAILY@18 04/21/17 Medical Decision Making - Diagnostics Imaging Results: Imaging Impressions Abdomen CT 04/21/17 17:22 Impression: 1. Findings suggestive of bladder outlet obstruction are noted with associated ureteral reflux and hydronephrosis. 2. See above report for additional findings. Results called and discussed with NEISHA QUIROZ M.D. on 04/21/2017 at 19:02 Imaging: Discussed imaging studies w/ call person Radiologist Differential Diagnosis: Differential diagnosis considered for flank pain including but not limited to musculoskeletal causes, kidney stone, pyelonephritis, shingles, and intra- abdominal causes such as diverticulitis and appendicitis. Consult/Admit Bed Type: [place] [id number] - Data Points Laboratory Results: Laboratory Results 04/21/17 17:12 04/21/17 17:12 04/21/17 04/21/17 04/21/17 17:35 17:20 17:12 WBC RBC Hgb POC Hgb 10.5 gm/dL L gm/dL (13.7-17.5) Hct POC Hct 31 % L % (40-51) MCV MCH MCHC RDW Plt Count MPV Neut % (Auto) Lymph % (Auto) [place] % (Auto) Eos % (Auto) Baso % (Auto) Nucleat RBC Rel Count Absolute Neuts (auto) Absolute Lymphs (auto) Absolute Monos (auto) Absolute Eos (auto) Absolute Basos (auto) Absolute Nucleated RBC Immature Gran % Immature Gran # POC Sodium 134 mEq/L L mEq/L (135-145) Sodium 133 mEq/L L mEq/L (135-145) POC Potassium 4.2 mEq/L mEq/L (3.3-5.0) Potassium 4.4 mEq/L mEq/L (3.5-5.2) POC Chloride 97 mEq/L mEq/L (97-110) Chloride 98 mEq/L mEq/L (97-110) Carbon Dioxide 25 mEq/l mEq/l (22-31) Anion Gap 10 mEq/L mEq/L (8-16) POC BUN 17 mg/dL mg/dL (7-23) BUN 18 mg/dL mg/dL (7-23) Creatinine 1.0 mg/dL mg/dL (0.7-1.3) POC Creatinine 1.2 mg/dL mg/dL (0.7-1.3) Estimated GFR > 60 Glucose 100 mg/dL mg/dL (70-100) POC Glucose 107 mg/dL H mg/dL (70-100) Calcium 9.1 mg/dL mg/dL (8.5-10.4) Urine Color YELLOW Urine Appearance MODERATELY TURBID Urine pH 6.0 (5.0-7.5) Ur Specific [place] 1.006 (1.002-1.030) Urine Protein 2+ H (NEGATIVE) Urine Ketones NEGATIVE (NEGATIVE) Urine Blood 1+ H (NEGATIVE) Urine Nitrate NEGATIVE (NEGATIVE) Urine Bilirubin NEGATIVE (NEGATIVE) Urine Urobilinogen NEGATIVE EU EU (0.2-1.0) Ur Leukocyte Esterase 3+ H (NEGATIVE) Urine RBC 1-3 /hpf /hpf (0-3) Urine WBC 50-182 /hpf H /hpf (0-3) Ur Epithelial Cells NONE SEEN /lpf /lpf (NONE-1+) Urine Bacteria 2+ /hpf H /hpf (NONE SEEN) Urine Glucose NEGATIVE (NEGATIVE) 04/21/17 17:12 WBC 9.06 10^3/uL 10^3/uL (3.80-9.50) RBC 3.35 10^6/uL L 10^6/uL (4.40-6.38) Hgb 10.5 g/dL L g/dL (13.7-17.5) POC Hgb Hct 30.7 % L % (40.0-51.0) POC Hct MCV 91.6 fL fL (81.5-99.8) MCH 31.3 pg pg (27.9-34.1) MCHC 34.2 g/dL g/dL (32.4-36.7) RDW 12.5 % % (11.5-15.2) Plt Count 205 10^3/uL 10^3/uL (150-400) MPV 9.4 fL fL (8.7-11.7) Neut % (Auto) 73.5 % % (39.3-74.2) Lymph % (Auto) 18.3 % % (15.0-45.0) [place] % (Auto) 7.1 % % (4.5-13.0) Eos % (Auto) 0.3 % L % (0.6-7.6) Baso % (Auto) 0.4 % % (0.3-1.7) Nucleat RBC Rel Count 0.0 % % (0.0-0.2) Absolute Neuts (auto) 6.65 10^3/uL H 10^3/uL (1.70-6.50) Absolute Lymphs (auto) 1.66 10^3/uL 10^3/uL (1.00-3.00) Absolute Monos (auto) 0.64 10^3/uL 10^3/uL (0.30-0.80) Absolute Eos (auto) 0.03 10^3/uL 10^3/uL (0.03-0.40) Absolute Basos (auto) 0.04 10^3/uL 10^3/uL (0.02-0.10) Absolute Nucleated RBC 0.00 10^3/uL 10^3/uL (0-0.01) Immature Gran % 0.4 % % (0.0-1.1) Immature Gran # 0.04 10^3/uL 10^3/uL (0.00-0.10) POC Sodium Sodium POC Potassium Potassium POC Chloride Chloride Carbon Dioxide Anion Gap POC BUN BUN Creatinine POC Creatinine Estimated GFR Glucose POC Glucose Calcium Urine Color Urine Appearance Urine pH Ur Specific [place] Urine Protein Urine Ketones Urine Blood Urine Nitrate Urine Bilirubin Urine Urobilinogen Ur Leukocyte Esterase Urine RBC Urine WBC Ur Epithelial Cells Urine Bacteria Urine Glucose Medications Given: Discontinued Medications Acetaminophen (Tylenol) 650 mg PO EDNOW ONE Stop: 04/21/17 17:22 Last Admin: 04/21/17 17:33 Dose: 650 mg Hydromorphone HCl (Dilaudid) 0.5 mg IVP EDNOW ONE Stop: 04/21/17 17:31 Last Admin: 04/21/17 17:33 Dose: 0.5 mg Sodium Chloride (Ns) 1,000 mls @ 0 mls/hr IV EDNOW ONE; Wide Open PRN Reason: Protocol Stop: 04/21/17 17:23 Last Admin: 04/21/17 17:32 Dose: 1,000 mls Cefepime HCl 2 gm/ Sterile (Water) 12.5 mls @ 150 mls/hr IV EDNOW ONE PRN Reason: Protocol Stop: 04/21/17 18:34 Last Admin: 04/21/17 19:17 Dose: 12.5 mls Ondansetron HCl (Zofran Odt) 4 mg PO EDNOW ONE Stop: 04/21/17 18:07 Last Admin: 04/21/17 18:07 Dose: 4 mg Point of Care Test Results: 04/21/17 17:20 POC Sodium 134 L POC Potassium 4.2 POC Chloride 97 POC BUN 17 POC Creatinine 1.2 POC Glucose 107 H Departure - Departure Disposition: [facility] Inpatient Acute Clinical Impression: Acute retention of urine Urinary tract infection Qualifiers: Urinary tract infection type: catheter-associated UTI Indwelling urinary catheter type: unspecified Encounter type: initial encounter Qualified Code(s): T83.511A - Infection and inflammatory reaction due to indwelling urethral catheter, initial encounter Condition: Good
[2017-04-21] MEDS ORDERED: ACETAMINOPHEN 325 MG TAB PO ONE (17:21)
[2017-04-21] MEDS ORDERED: HYDROmorphONE/DILAUDID 1 MG/ML INJ IVP ONE (17:21)
[2017-04-21 17:22] LABS: PLATELET COUNT 205 10^3/uL (150-400)
[2017-04-21] MEDS ORDERED: NS 1,000 ML IV ONE (17:22)
[2017-04-21] MEDS ORDERED: HYDROmorphONE/DILAUDID 2 MG/ML INJ ONE (17:30)
[2017-04-21] MEDS ORDERED: HYDROmorphONE/DILAUDID 2 MG/ML INJ IVP ONE ×2 (17:30)
[2017-04-21] MEDS ORDERED: IOPAMIDOL (ISOVUE-300) 100 ML BTL ONE (17:42)
[2017-04-21] MEDS ORDERED: ONDANSETRON DISINTEGRATING 4 MG TAB PO ONE (18:06)
[2017-04-21] MEDS ORDERED: ONDANSETRON DISINTEGRATING 4 MG TAB ONE (18:07)
[2017-04-21] MEDS ORDERED: CEFEPIME HCL 2 GM in STERILE WATER INJ 12.5 ML IV ONE (18:30)
[2017-04-21] MEDS ORDERED: ONDANSETRON 4 MG/2 ML VIAL IVP PRN (18:38)
[2017-04-21] MEDS ORDERED: ACETAMINOPHEN 325 MG TAB PO PRN (18:38)
[2017-04-21] MEDS ORDERED: ONDANSETRON DISINTEGRATING 4 MG TAB PO PRN (18:38)
[2017-04-21] MEDS ORDERED: oxyCODONE IR 5 MG TAB PO PRN (21:06)
[2017-04-21] MEDS ORDERED: NS 1,000 ML IV SCH (22:30)
--- NOTE | 2017-04-21 22:31 | GHP ---
[f rep st] HISTORY AND PHYSICAL DATE OF ADMISSION: 04/21/2017 CHIEF COMPLAINT: Right flank pain. HISTORY OF PRESENT ILLNESS: An 81-year-old male who was recently admitted to [facility] on March 30, for septic shock secondary to E coli UTI and bacteremia. He was discharged home with a Cabezas, which was removed by Dr. Kong in clinic yesterday. The patient was doing well, able to urinate on his own without any hematuria. He had a little bit of dysuria. Has had an improved appetite; however, developed sudden onset of right-sided flank pain that was sharp, 10/10. Denies any fevers, chills, or sweats. Had some nausea here today. No diarrhea. He is brought in by his . In the emergency room, the patient was bladder scanned, with retention of 700 mL. A Cabezas was placed. REVIEW OF SYSTEMS: I completed a 10-point review of systems, negative except as noted in HPI. PAST MEDICAL HISTORY: 1. E coli bacteremia, septic shock, March 2017. 2. Hypertension. 3. BPH, status post green laser procedure on March 20. 4. Prostate cancer, on hormone therapy. Recent bone scan negative for osseous lesions. PAST SURGICAL HISTORY: 1. Green light procedure 03/23/2017. 2. Abdominal hernia. 3. Appendectomy. SOCIAL HISTORY: Lives in [place] with his . Drinks occasional wine. No tobacco or illicits. He has been using a cane at home without issue. HOME MEDICATIONS: Flomax 0.4 mg, lisinopril 10 mg daily, Ativan p.r.n., herbal supplements, aspirin 81 mg daily. ALLERGIES: None. PHYSICAL EXAMINATION: VITAL SIGNS: Temperature 36.8, blood pressure 119/75, heart rate 70s, respirations 18, 92% on room air. GENERAL: Thin male, lying in bed, in no acute distress. HEENT: PERRLA. EOMI. Oropharynx clear. CV: Regular rate and rhythm. No murmurs, gallops, or rubs. LUNGS: Clear. ABDOMEN : Soft, nontender, nondistended. : Cabezas reinserted, with clear yellow urine. Mild right suprapubic pain. Moderate right-sided CVA tenderness. MUSCULOSKELETAL: Moving all 4 extremities. NEUROLOGIC: 2 through 12 intact. PSYCHIATRIC: Alert and oriented x3. LABORATORY DATA: WBC is 9, hemoglobin 10, hematocrit 30, platelets 205. Sodium 134, potassium 4.2, chloride 97, creatinine is 1.2, glucose is 107, baseline is 1. UA has 50 to 180 WBCs, +3 leuk esterase, +2 bacteria. Urine culture is pending. CT abdomen and pelvis: Findings suggestive of bladder outlet obstruction, which is seen on prior. Also associated ureteral reflux and hydronephrosis. ASSESSMENT AND PLAN: 1. Right flank pain: Suspect this is secondary to urinary tract infection. No evidence of abscess on CT. P.r.n. Tylenol and low-dose oxycodone if needed. 2. Catheter associated urinary tract infection: This was present at admission. He had Cabezas removed yesterday. Prior history of E coli that was sensitive to ceftriaxone. We will continue this here. Cultures are pending. He is afebrile, without leukocytosis. Contact Urology in the morning. 3. Benign prostatic hyperplasia: History of GreenLight procedure. Again, will contact Urology. Resume Flomax. 4. Mild hypovolemic hyponatremia: We will give gentle IV fluids. 5. Mild acute kidney injury: Baseline is 0.9 to 1; it is 1.2 today. 6. Normocytic anemia: H and H are stable. 7. Hypertension. Resume home medications. 8. Diet: Regular. 9. Deep venous thrombosis prophylaxis with Lovenox. Patient warrants inpatient admission given concern for UTI, requiring IV antibiotics, awaiting culture data and urology evaluation. /[id number]/MODL MTDD
[2017-04-22] MEDS: LORazepam 0.5 MG TAB PO PRN (00:07)
[2017-04-22] MEDS ORDERED: Herbals/Supplements -Info Only PO SCH (09:00)
[2017-04-22] MEDS: ASPIRIN EC 81 MG TAB PO SCH (09:28)
[2017-04-22] MEDS: ENOXAPARIN 40 MG/0.4 ML SYR SC SCH (09:29)
--- NOTE | 2017-04-22 11:54 | ASMTCMCOM ---
CM Note CM Note Notes: Pt admitted w/UTI/urinary retention. Pt is re-admit as he was dc'd 04/03 form [facility]. He lives at home w/. DC needs not clear yet. CM will follow. Date Signed: 04/22/2017 11:53 AM Electronically Signed By:Josefa Koehler RN
--- NOTE | 2017-04-22 16:35 | PDMN ---
Medical Necessity Medical necessity: Pt meets IP criteria per MD; est los >2 mn for eval/tx of complicated UTI w/urinary retention, R flank pain & nausea; admit for Urology consult, IV abx & IV antiemetics; hx recent hospitalization for septic shock secondary to UTI & bacteremia, prostate cancer & htn; per H&P & order 04/21/17
--- NOTE | 2017-04-22 17:54 | HOSPPROG ---
Hospitalist Progress Note Assessment/Plan: # UTI - GNR NLF - cont rocephin # urinary retention, recent Green light procedure - will d/w urology - cont montez for now - cont flomax # htn - lisinopril Subjective: back pain better today Objective: Vital Signs Temp Pulse Resp BP Pulse Ox 36.9 C 70 16 135/66 H 95 04/22/17 15:34 04/22/17 15:34 04/22/17 15:34 04/22/17 15:34 04/22/17 15:34 Laboratory Results 04/22/17 07:31 04/22/17 07:31 04/21/17 04/22/17 04/23/17 05:59 05:59 05:59 Intake Total 650 1515 Output Total 2300 1250 Balance -[address] reviewed - Physical Exam Constitutional: no apparent distress, appears nourished Cardiovascular: regular rate and rhythym, no murmur, rub, or gallop Respiratory: no respiratory distress, no rales or rhonchi Gastrointestinal: normoactive bowel sounds, soft, non-tender abdomen, no palpable masses, other (no flank pain) Genitourinary: montez in urethra ICD10 Worksheet Patient Problems: Problems Problem Status Onset Sepsis Acute Urinary tract infection Acute Acute retention of urine Acute
[2017-04-22] MEDS ORDERED: TAMSULOSIN HCL 0.4 MG CAP PO SCH (18:00)
[2017-04-23] MEDS: LORazepam 0.5 MG TAB PO PRN (00:11)
[2017-04-23 08:25] VITALS: BP 124/78; PULSE 65; RESP 16; TEMP 97.9; O2SAT 93
[2017-04-23] MEDS: ENOXAPARIN 40 MG/0.4 ML SYR SC SCH (08:34)
[2017-04-23] MEDS: ASPIRIN EC 81 MG TAB PO SCH (08:35)
--- NOTE | 2017-04-23 09:22 | GDS ---
[f rep st] DISCHARGE SUMMARY DIAGNOSES: 1. Urinary tract infection due to Escherichia coli. 2. Urinary retention. 3. Recent GreenLight procedure. 4. Hypertension. HOSPITAL COURSE: This is an 81-year-old man, recently admitted with sepsis due to an Escherichia col i UTI with a complicated recent urologic history. This started when he had a GreenLight procedure. After his Cabezas was pulled, he had retention which led to the above presentation of sepsis, E coli ba cteremia due to a UTI. He saw Dr. Kong 2 days prior to presentation on this occurrence. His Cabezas was discontinued, he seemed to be urinating well although it sounds as though not completely emptyin g his bladder. He re-presented to the emergency department with back pain. Cabezas was placed which t ook out 700 cc of urine out. CT scan showed hydronephrosis consistent with urinary retention. Cabezas was replaced. Urine culture grows the same E coli that was previously in his urine as well as blood . He has been treated with Rocephin for this as an inpatient. On discharge, I will transition him t o Bactrim for at least an additional 11 days. I discussed this with Maryse Hoyt, she will facili lucas close followup with Dr. Kong approximately 4-5 days after discharge. He is being discharged w ith a Cabezas to be followed up by Urology. He will be given appropriate supplies for managing this at home. BILLING: I spent more than 30 minutes on the day of discharge coordinating care. /[id number]/MODL
--- NOTE | 2017-04-28 11:54 | PQFORM ---
PHYSICIAN QUERY FORM Needs Your Response This query form is being sent to you to assure this patient record is coded properly. Please respond to the question below: DRY CLEANING ATTENDANT QUESTION: Dr Gutierrez There was mention of this patients UTI being caused by the patients Cabezas (CAUTI ) but no mention of this was documented on the Summary. Did this patient have a Catheter Associated UTI ? ___ Yes __x_ No ___ Unable to Determine ___ Other (Please Specify ) Thank You Lori [employer] Educator INSTRUCTIONS FOR RESPONSE: Answer question by clicking on the "Edit Document" button. Move cursor to area below the stars. When complete, hit "Save." Click on the "Sign" button, then click "Sign" again. Type in your PIN and hit "Enter." MTDD
== END 2017-04-23 12:11 | disposition home or self-care (01) | DRG 690 ==
LOC: F1N 21:16
PROVIDERS: ADMIT Internal Medicine; ATTEND Internal Medicine
DX: N39.0 Urinary tract infection, site not specified (principal); B96.20 Unspecified Escherichia coli [E. coli] as the cause of diseases classified elsewhere; E87.1 Hypo-osmolality and hyponatremia; I10 Essential (primary) hypertension; Z85.46 Personal history of malignant neoplasm of prostate
CPT/HCPCS: 82947-QW; 96374; J0692; J0696; J1170; J1650; J2405; Q9967

== ENCOUNTER 2017-04-23 22:37 | Emergency (ER) | payer OTHER, BC ==
[2017-04-23 22:46] VITALS: BP 152/80; PULSE 84; RESP 18; TEMP 97.5; O2SAT 92
--- NOTE | 2017-04-23 22:53 | EDPHY ---
H & P Stated Complaint: BLOOD IN DUARTE BAG/D/C'D INPT TODAY Time Seen by Provider: 04/23/17 22:45 HPI/ROS: HPI CHIEF COMPLAINT: Blood in Duarte catheter, recent discharge from hospital HISTORY OF PRESENT ILLNESS: Patient is a 81-year-old male, history of hypertension, urinary tension, green light procedure, E coli infection with sepsis, presents emergency room with blood in his urine. He was discharged from the hospital today. Patient presents back to the emergency room as he knows some blood in his Duarte catheter. He denies any significant pain specifically denies fever, back pain, abdominal pain. Denies being on any anticoagulation. Due to the blood in his Duarte decided come the emergency room for evaluation. Past Medical History: hypertension, urinary tension, green light procedure, E coli infection with sepsis Past Surgical History: Green light procedure. Social History: Denies drugs alcohol tobacco products. Family History: Noncontributory Followed by Dr. Fly Bal with Urology. ROS REVIEW OF SYSTEMS: A comprehensive 10 point review of systems is otherwise negative aside from elements mentioned in the history of present illness. Exam Constitutional appears well nontoxic no acute distress, triage nursing summary reviewed, vital signs reviewed, awake/alert. Eyes normal conjunctivae and sclera, EOMI, PERRLA. HENT normal inspection, atraumatic, moist mucus membranes, no epistaxis, neck supple/ no meningismus, no raccoon eyes. Respiratory clear to auscultation bilaterally, normal breath sounds, no respiratory distress, no wheezing. Cardiovascular rate normal, regular rhythm, no murmur, no edema, distal pulses normal. Gastrointestinal soft, non-tender, no rebound, no guarding, normal bowel sounds, no distension, no pulsatile mass. Genitourinary no CVA tenderness. Musculoskeletal no midline vertebral tenderness, full range of motion, no calf swelling, no tenderness of extremities, no meningismus, good pulses, neurovascularly intact. Skin pink, warm, & dry, no rash, skin atraumatic. Neurologic awake, alert and oriented x 3, AAOx3, moves all 4 extremities equally, motor intact, sensory intact, CN II-XII intact, normal cerebellar, normal vision, normal speech. Psychiatric normal mood/affect. Heme/Lymph/Immune no lymphadenopathy. Differential Diagnosis: Includes but is not limited to in a particular order Duarte catheter causing urinary tract bleeding, Duarte catheter irritation, urinary tract infection, cystitis Medical Decision Making: Plan for this patient check blood work, check UA, Duarte catheter and readjusted. The Duarte catheter was noted to not be a leg bag in hanging from his leg. It may have pulled on his bladder causing bleeding. Additionally it may have caused bleeding through the prostate. Re-evaluation: Patient is already on Bactrim. Duarte catheter has been irrigated. 250 cc were irrigated through. Blood has now resolved clear urine. Patient has no significant pain. Duarte catheter has been adjusted appropriately. Education as been given. Patient would like to go home. Return precautions discussed Do recommend he follows up with his urologist. Return emergency room if there is any worsening symptoms questions or concerns. Source: Patient - Personal History Current Tetanus Diphtheria and Acellular Pertussis (TDAP): Yes - Medical/Surgical History Hx Asthma: No Hx Chronic Respiratory Disease: No Hx Diabetes: No Hx Cardiac Disease: No Hx Renal Disease: No Hx Cirrhosis: No Hx Alcoholism: No Hx HIV/AIDS: No Hx Splenectomy or Spleen Trauma: No Other PMH: HERNIA, APPY, HTN,ANXIETY, ENLARGED PROSTATE, PROSTATE SX - Social History Smoking Status: Never smoked Constitutional: Initial Vital Signs Temperature (C) 36.4 C 04/23/17 22:44 Heart Rate 84 04/23/17 22:44 Respiratory Rate 18 04/23/17 22:44 Blood Pressure 152/80 H 04/23/17 22:44 O2 Sat (%) 92 04/23/17 22:44 O2 Delivery Mode Room Air Allergies/Adverse Reactions: No Known Allergies Allergy (Verified 04/21/17 16:33) Home Medications: Medication Instructions Recorded Herbals/Supplements -Info Only 1 ea PO DAILY 03/30/17 LORazepam [Lorazepam] 0.5 - 1 mg PO DAILY PRN 03/30/17 Lisinopril 10 mg PO DAILY 03/30/17 Tamsulosin HCl [Flomax 0.4 MG (*)] 0.4 mg PO DAILY@18 04/21/17 Sulfamethox/Tmp 800/160 mg 1 tab PO BID #22 tab 04/23/17 [Bactrim Ds] Medical Decision Making - Data Points Laboratory Results: Laboratory Results 04/23/17 23:00 04/23/17 23:00 04/23/17 04/23/17 04/23/17 23:00 23:00 23:00 WBC RBC Hgb Hct MCV MCH MCHC RDW Plt Count MPV Neut % (Auto) Lymph % (Auto) [place] % (Auto) Eos % (Auto) Baso % (Auto) Nucleat RBC Rel Count Absolute Neuts (auto) Absolute Lymphs (auto) Absolute Monos (auto) Absolute Eos (auto) Absolute Basos (auto) Absolute Nucleated RBC Immature Gran % Immature Gran # PT 13.4 SEC SEC (12.0-15.0) INR 1.00 (0.83-1.16) APTT 33.4 SEC SEC (23.0-38.0) Sodium 139 mEq/L mEq/L (135-145) Potassium 4.2 mEq/L mEq/L (3.5-5.2) Chloride 101 mEq/L mEq/L (97-110) Carbon Dioxide 23 mEq/l mEq/l (22-31) Anion Gap 15 mEq/L mEq/L (8-16) BUN 19 mg/dL mg/dL (7-23) Creatinine 1.0 mg/dL mg/dL (0.7-1.3) Estimated GFR > 60 Glucose 99 mg/dL mg/dL (70-100) Calcium 9.7 mg/dL mg/dL (8.5-10.4) Urine Color RED Urine Appearance MODERATELY TURBID Urine pH 6.0 (5.0-7.5) Ur Specific [place] 1.013 (1.002-1.030) Urine Protein 2+ H (NEGATIVE) Urine Ketones TRACE H (NEGATIVE) Urine Blood 3+ H (NEGATIVE) Urine Nitrate NEGATIVE (NEGATIVE) Urine Bilirubin NEGATIVE (NEGATIVE) Urine Urobilinogen NEGATIVE EU EU (0.2-1.0) Ur Leukocyte Esterase 2+ H (NEGATIVE) Urine RBC Pending Urine WBC Pending Ur Epithelial Cells Pending Urine Glucose NEGATIVE (NEGATIVE) 04/23/17 23:00 WBC 6.79 10^3/uL 10^3/uL (3.80-9.50) RBC 3.77 10^6/uL L 10^6/uL (4.40-6.38) Hgb 11.8 g/dL L g/dL (13.7-17.5) Hct 34.4 % L % (40.0-51.0) MCV 91.2 fL fL (81.5-99.8) MCH 31.3 pg pg (27.9-34.1) MCHC 34.3 g/dL g/dL (32.4-36.7) RDW 12.2 % % (11.5-15.2) Plt Count 245 10^3/uL D 10^3/uL (150-400) MPV 9.6 fL fL (8.7-11.7) Neut % (Auto) 56.8 % % (39.3-74.2) Lymph % (Auto) 31.2 % % (15.0-45.0) [place] % (Auto) 8.5 % % (4.5-13.0) Eos % (Auto) 2.5 % % (0.6-7.6) Baso % (Auto) 0.6 % % (0.3-1.7) Nucleat RBC Rel Count 0.0 % % (0.0-0.2) Absolute Neuts (auto) 3.85 10^3/uL 10^3/uL (1.70-6.50) Absolute Lymphs (auto) 2.12 10^3/uL 10^3/uL (1.00-3.00) Absolute Monos (auto) 0.58 10^3/uL 10^3/uL (0.30-0.80) Absolute Eos (auto) 0.17 10^3/uL 10^3/uL (0.03-0.40) Absolute Basos (auto) 0.04 10^3/uL 10^3/uL (0.02-0.10) Absolute Nucleated RBC 0.00 10^3/uL 10^3/uL (0-0.01) Immature Gran % 0.4 % % (0.0-1.1) Immature Gran # 0.03 10^3/uL 10^3/uL (0.00-0.10) PT INR APTT Sodium Potassium Chloride Carbon Dioxide Anion Gap BUN Creatinine Estimated GFR Glucose Calcium Urine Color Urine Appearance Urine pH Ur Specific [place] Urine Protein Urine Ketones Urine Blood Urine Nitrate Urine Bilirubin Urine Urobilinogen Ur Leukocyte Esterase Urine RBC Urine WBC Ur Epithelial Cells Urine Glucose Departure - Departure Disposition: Home, Routine, Self-Care Clinical Impression: Hematuria Qualifiers: Hematuria type: unspecified type Qualified Code(s): R31.9 - Hematuria, unspecified Condition: Fair Instructions: Hematuria (ED) Additional Instructions: 1. Follow up with Urology. 2. Return emergency room if develops worsening symptoms questions or concerns. Referrals: Simón Shaffer MD [Primary Care Provider] - As per Instructions
[2017-04-23 23:14] LABS: PLATELET COUNT 245 10^3/uL (150-400)
[2017-04-23 23:23] LABS: PROTIME(PATIENT) 13.4 SEC (12.0-15.0)
== END 2017-04-23 23:58 | disposition home or self-care (01) ==
DX: R31.9 Hematuria, unspecified (principal); I10 Essential (primary) hypertension

== ENCOUNTER → 2018-03-11 | Outpatient (CLI) | payer OTHER, BC | LOC: FIMAGING 09:45 | PROVIDERS: ATTEND Internal Medicine | DX: M16.0 Bilateral primary osteoarthritis of hip (principal); M17.12 Unilateral primary osteoarthritis, left knee; M22.8X2 Other disorders of patella, left knee ==